=== PATIENT | female | born 2000 | race Caucasian/White ===

== ENCOUNTER 2024-05-01 06:22 | Outpatient (REF) | payer OTHER, SELFPAY ==
--- NOTE | ~2024-05-01 | US_ITS ---
EXAMINATION: US PELVIS CLINICAL INFORMATION: Postcoital pelvic pain, onset period today. COMPARISON: None available. TECHNIQUE: Ultrasound of the pelvis is performed using both transabdominal and transvaginal transducers along with Doppler. Transvaginal imaging is performed due to inadequate visualization transabdominally. FINDINGS: The uterus is anteverted and measures 11.5 x 3.3 x 4.0 cm. No significant free fluid. Endometrial thickness is 4 mm. Limited visualization of the bilateral ovaries due to bowel gas. Right ovary measures 2.5 x 1.8 x 2.3 cm, volume 5.6 mL. Left ovary measures 1.8 x 1.5 x 1.6 cm, volume mL. US/US pelvic and transvaginal IMPRESSION: 1. Endometrial thickness is 4 mm. 2. Limited visualization of the bilateral ovaries due to bowel gas. Electronically signed by: Unique Piedra MD 05/01/2024 12:47 PM EDT
== END 2024-05-01 06:23 | disposition home or self-care (01) ==
LOC: HO.UMASIMG 06:22
PROVIDERS: Visit Provider Nurse Practitioner Women's Health
DX: R10.2 Pelvic and perineal pain (principal); N94.10 Unspecified dyspareunia
CPT/HCPCS: 76830; 76856